=== PATIENT | female | born 1995 | race Caucasian/White ===

== ENCOUNTER 2016-08-02 14:01 | Emergency (ER) | payer OTHER ==
[~2016-08-02] VITALS: Ht 157.5 cm; Wt 65.3 kg
[2016-08-02 14:29] VITALS: BP 120/74
== END 2016-08-02 16:36 | disposition left against medical advice (07) ==
LOC: EME 14:01
DX: Z04.1 Encounter for examination and observation following transport accident (principal); Z53.21 Procedure and treatment not carried out due to patient leaving prior to being seen by health care provider